=== PATIENT | female | born 1990 | race Caucasian/White ===

== ENCOUNTER 2018-06-25 08:00 | Inpatient (IN) | payer OTHER ==
[2018-06-25] VITALS (28 sets, daily range): BP systolic 127–162; BP diastolic 9–103; PULSE 63–98; TEMP 97.9–99
[~2018-06-25] VITALS: Ht 165.1 cm; Wt 98.6 kg
[2018-06-25] MEDS ORDERED: PRENATAL VITAMI1 TA3 PO (08:22)
--- NOTE | 2018-06-25 09:00 | NUR ---
08: Patient ambulatory onto unit for labor check. Reports regular contractions every 5 minutes since 0630. Reports good movement, denies vaginal bleeding or leaking of fluid. EFMs on, VS taken. SVE /-2. notified of patient, orders received. Assessment completed. Consents signed by patient . INT started in left wrist by Jesse GRIFFIN.
[2018-06-25 09:05] LABS: COLLECTION METHOD CLEAN CATCH
[2018-06-25 09:09] LABS: BASO % 0.4 % (0.0-2.0); EOS # 0.1 (0.0-0.7); EOS % 0.8 % (0-4.0); GRAN % 68.9 % (42.2-75.2); HEMATOCRIT 43.2 % (37.0-47.0); HEMOGLOBIN 14.9 g/dl (12.5-16.0); LYMPH # 1.7 (1.2-3.4); LYMPH % 23.3 % (20.0-51.0); MEAN CELL VOLUME 86 fl (80.0-100.0); MEAN CORPUSCULAR HEMOGLOBIN 30 pg (27.0-31.0); MEAN CORPUSCULAR HGB CONC 35 g/dl (33.0-37.0); MEAN PLATELET VOLUME 12.4 fl (7.4-10.4); MONO # 0.5 (0.1-0.6); MONO % 6.3 % (1.7-9.3); PLATELET COUNT 182 K/mm3 (130-400); RED BLOOD COUNT 5.01 M/mm3 (4.10-5.30); REDCELL DISTRIBUTION WIDTH-CV 13.3 % (11.5-14.5)
[2018-06-25 09:11] LABS: MUCOUS Present /lpf; PH 6 (5-8); URINE APPEARANCE Hazy; URINE BACTERIA None Seen /hpf; URINE BILIRUBIN Negative (NEGATIVE); URINE BLOOD 3+ (NEGATIVE); URINE COLOR Yellow; URINE GLUCOSE Negative (NEGATIVE); URINE KETONE Negative (NEGATIVE); URINE LEUKOCYTE ESTERASE Negative (NEGATIVE); URINE NITRATE Negative (NEGATIVE); URINE PROTEIN(semi-quant) 3+ (NEGATIVE); URINE UROBILINOGEN Negative (NEGATIVE)
[2018-06-25 09:21] LABS: ALBUMIN 3.5 gm/dL (3.5-5.0); BILIRUBIN,TOTAL 0.3 mg/dL (0.0-1.0); CALCIUM 9.5 mg/dL (8.4-10.2); CREATININE, serum 0.74 (0.52-1.25); POTASSIUM 4.2 mmol/L (3.4-5.0); TOTAL PROTEIN 6.9 gm/dL (6.4-8.2)
--- NOTE | 2018-06-25 10:00 | NUR ---
0945- EFM and TOCO off, Pt up to void. 0948- Pt back to bed, sitting on side of bed for epidural placement. Srinivas, ASSISTANT PROFESSOR OF HISTORY at bedside. 0950- O2 sat monitor on and tracing, FHR tracing intermittently due to maternal position. 0958- Test dose, see anesthesia record. 1003- Pt repositioned to semi-fowlers with WL. EFM and TOCO adjusted and tracing.
--- NOTE | 2018-06-25 10:30 | NUR ---
1027- FHR deceleration noted, RN at bedside x2. Pt repositioned to RL. FHR decel lasted approx 3mins before returning to baseline. 1032- SVE by this RN, /1.
--- NOTE | 2018-06-25 12:00 | NUR ---
1147- FHR late decel noted down to 90 bpm. SVE by this RN compleete/0. Pt repositioned to WL and high fowlers. FHR return to baseline after 2mins.
--- NOTE | 2018-06-25 12:15 | NUR ---
1200- Pt and room prepped for pushing. 1205- Pt coached and pushes with UC. FHR deceleration noted, initially, variables noted with attempts to return to baseline for 50sec, then decel down to 60bpm and slowly returns to baseline over 5-6mins. O2 on and Pt repositioned to LL. 1210- Dr Sheth updated, see physician notificaiton.
--- NOTE | 2018-06-25 12:55 | NUR ---
1245- Dr Trent on unit, given update, reviews strip with this RN. 1248- and this RN at bedside. 1251- Pt pushes with UC, FHR decel noted down to the 50's, lasting 30 secs, returns to baseline for <5 secs, then decels again to 55secs and remains for 2mins before FSE off and external on. Pt educated on Vacuum extractions. Pt verbalizes understanding. 1255- Pt pushes well, vacuum on, VAD of viable male . placed on mother's abd where dried and stimulated. Tended to by Jesse, nursery RN. Cord blood and cord gases obtained. 1301- Placenta delivered spontaneously, Pitocin started at 333ml/hr. Fundus massaged to firm by . 2nd degree laceration repaired by . Pericare completed. Ice pack on, clean chux placed under Pt. Pt repositioned to high-fowlers, tolerated well.
--- NOTE | 2018-06-25 16:05 | NUR ---
1605- Pt ambulates to bathroom independently with this RN stand-by assist. Pt states she "feels the urge to pee" but unable at this time. Pericare completed. Underwear and pad on. Clean gown on. Pt ambulates to room, oriented to room. Pt encouraged to drink pitcher of water and try to void again in 30mins or less. Pt verbalizes understanding. Call light within reach.
[2018-06-26 07:15] VITALS: BP 135/89; PULSE 91; TEMP 98.3
--- NOTE | 2018-06-26 09:14 | NUR ---
Initial visit; Parents thanked Assistant Teacher for offering congratulations and God's blessings for the of their son. Assistant Teacher thanked them for choosing [facility].
== END 2018-06-26 14:15 | disposition home or self-care (01) | DRG 807 ==
LOC: LDRO 08:00 → OB 08:05 → LDR 08:05 → OB 20:07
PROVIDERS: ADMIT Student in an Organized Health Care Education/Training Program
PROC: 10D07Z6 Extraction of Products of Conception, Vacuum, Via Natural or Artificial Opening (ICD-10-PCS; principal; 2018-06-25)
PROC: 0KQM0ZZ Repair Perineum Muscle, Open Approach (ICD-10-PCS; 2018-06-25)
DX: O76 Abnormality in fetal heart rate and rhythm complicating labor and delivery (principal); Z37.0 Single live birth; Z3A.39 39 weeks gestation of pregnancy; O70.1 Second degree perineal laceration during delivery; O99.214 Obesity complicating childbirth; O16.5 Unspecified maternal hypertension, complicating the puerperium
CPT/HCPCS: J2590; J7120